=== PATIENT | female | born 1995 | race Caucasian/White ===

== ENCOUNTER 2016-12-04 18:06 | Emergency (ER) | payer OTHER ==
[~2016-12-04] VITALS: Ht 157.5 cm; Wt 72.6 kg
[2016-12-04] MEDS ORDERED: ALBUTEROL2.5 MG/31 INH (18:19)
[2016-12-04] MEDS ORDERED: TESSALON PERLE100 MG PO (19:41)
[2016-12-04 20:02] VITALS: BP 116/74
== END 2016-12-04 20:03 | disposition home or self-care (01) ==
LOC: ER 18:06
DX: J30.9 Allergic rhinitis, unspecified (principal); F10.99 Alcohol use, unspecified with unspecified alcohol-induced disorder